=== PATIENT | male | born 1935 | race Caucasian/White ===

== ENCOUNTER → 2018-06-06 | Outpatient (CLI) | payer MEDICARE ==
[~2018-06-06] MED LIST: ATOR20TA58 PO; DEXL60CA2 PO; GADOBUTROL 10 MMOL/10 ML VIAL IV ONE; LISI1TAB3 PO
--- NOTE | 2018-06-06 13:25 | KCIC ---
MRI Brain with and without contrast History: Progressive left-sided hearing loss Technique: Multiplanar, multi sequential pre and postcontrast MR imaging was performed of the brain. Contrast: 10 cc Gadavist Comparison: None Findings: There is some motion degradation. There is no evidence of recent infarct or cytotoxic edema. Ventricular size is within normal limits. There is mild generalized supratentorial involutional change. There is no significant midline shift, intraaxial mass effect, or focal abnormal extra-axial fluid collection. There is multifocal overall mild T2 and FLAIR hyperintense signal abnormality of the supratentorial white matter bilaterally not associated with enhancement. There is no nodular parenchymal or leptomeningeal enhancement. There is preservation of the major intracranial flow-voids at the skull base. The cerebellar tonsils are normal in location. There is no significant abnormality of the pineal gland or pituitary gland. Paranasal sinuses are overall aerated. There is patchy [id number] fluid and thickening of the mastoid air cells bilaterally. There is [id number] ethmoid air cell mucosal thickening. There is minimal maxillary sinus mucosal thickening. There are no air-fluid levels of the paranasal sinuses. There has been lens surgery bilaterally. There is preserved marrow signal of the clivus. There is no enhancing mass of the internal auditory canals or the cerebellopontine angles. Impression: 1. There is no enhancing mass of the internal auditory canals or the cerebellopontine angles. 2. Scattered overall mild T2 and FLAIR hyperintense signal abnormality of the supratentorial white matter is nonspecific, probably due to chronic microvascular ischemic disease in a patient this age. There is no abnormal intracranial enhancement or evidence of recent infarct. There is mild generalized supratentorial involutional change. 3. There is patchy fluid of the mastoid air cells bilaterally. Electronically signed by: Anjel Garg MD (06/06/2018 1:22 PM) [id number]
== END | disposition home or self-care (01) ==
LOC: KCIC MRI 10:48
PROVIDERS: ATTEND Otolaryngology
DX: H91.8X2 Other specified hearing loss, left ear (principal)
CPT/HCPCS: 70553; 82565; A9585

== ENCOUNTER → 2019-11-14 | Outpatient (CLI) | payer MEDICARE ==
[~2019-11-14] MED LIST changes: -GADOBUTROL 10 MMOL/10 ML VIAL IV ONE; +LISI1TAB23 PO; -LISI1TAB3 PO
--- NOTE | 2019-11-15 09:00 | KCIC ---
LUMBAR SPINE WO CONTRAST History: Back pain. Possible compression fracture. Technique: Multiplanar, multi sequential MR imaging was performed of the lumbar spine. Comparison: None Findings: Chronic mild L1 superior endplate compression fracture. Chronic L2 moderate compression fracture. No acute fracture. Grade 1 anterolisthesis L5 on S1. Chronic bilateral L5 spondylolysis. No pathologic marrow replacing process. Degenerative endplate changes most prominent L3-L4. Conus terminates at the normal location. No evidence of nerve root clumping. L1-L2: Small posterior disc bulge. Mild facet arthropathy. No canal or neuroforaminal narrowing. L2-L3: Small posterior disc bulge. Mild facet arthropathy. No canal or neuroforaminal narrowing. L3-L4: Posterior disc osteophyte complex. Mild facet arthropathy. Mild subarticular recess narrowing. No canal narrowing. Mild bilateral neural foraminal narrowing. L4-L5: Small posterior disc bulge moderate facet arthropathy. No canal narrowing. No neuroforaminal narrowing. L5-S1: Anterolisthesis. Moderate facet arthropathy. No canal narrowing. Moderate bilateral neural foraminal narrowing. Impression: 1. Chronic L1 and L2 compression fractures. 2. Grade 1 anterolisthesis L5 on S1 due to bilateral L5 spondylolysis. 3. Multilevel lumbar spondylosis most prominent L5-S1 with moderate bilateral neural foraminal narrowing. No significant canal narrowing. Electronically signed by: Vic Howell DO (11/15/2019 8:57 AM) [id number]
== END | disposition home or self-care (01) ==
LOC: KCIC MRI 15:01
PROVIDERS: ATTEND Family Medicine
DX: M48.56XA Collapsed vertebra, not elsewhere classified, lumbar region, initial encounter for fracture (principal); M47.817 Spondylosis without myelopathy or radiculopathy, lumbosacral region; M48.07 Spinal stenosis, lumbosacral region; M12.88 Other specific arthropathies, not elsewhere classified, other specified site; M25.78 Osteophyte, vertebrae
CPT/HCPCS: 72148